=== PATIENT | female | born 1965 | race Caucasian/White ===

== ENCOUNTER 2016-12-06 09:14 | Emergency (ER) | payer OTHER ==
[~2016-12-06] VITALS: Ht 172.7 cm; Wt 68.0 kg
[~2016-12-06 09:14] MED LIST: PROVERA10 MG PO; VICODIN ES 7501 TAB PO; VIVELLE-DO0.025 MG/2 PO; ZOFRAN ODT4 MG SL
[2016-12-06 10:04] LABS: BASO % 0.4 % (0.0-1.0); EOS # 0.1 10*3/uL (0.0-0.4); EOS % 2.8 % (1.0-4.0); HEMATOCRIT 39.7 % (37.0-47.0); LYMPH # 1.1 10*3/uL (1.3-4.4); LYMPH % 24.4 % (27.0-41.0); MEAN CELL VOLUME 91.7 fl (81.0-99.0); MEAN CORPUSCULAR HGB CONC 32.7 g/dl (33.0-37.0); MONO # 0.5 10*3/uL (0.1-1.0); MONO % 10.2 % (3.0-9.0); NEUT # 2.9 10*3/uL (2.3-7.9); PLATELET COUNT AUTOMATED 183 10*3/uL (130-400); RED BLOOD COUNT 4.33 10*6/uL (4.10-5.10); RED CELL DISTRI WIDTH 12.5 % (0-14.5); WHITE BLOOD COUNT 4.6 10*3/uL (4.8-10.8)
[2016-12-06 10:11] LABS: BILIRUBIN NEGATIVE (NEGATIVE); BLOOD TRACE-INTACT (NEGATIVE); CLARITY SL CLOUDY (CLEAR); COLOR YELLOW (YELLOW); GLUCOSE NEGATIVE (NEGATIVE); KETONE NEGATIVE (NEGATIVE); LEUKO ESTERASE NEGATIVE (NEGATIVE); NITRITE NEGATIVE (NEGATIVE); PH 5.5 (5.0-9.0); PROTEIN NEGATIVE (NEGATIVE); SPECIFIC GRAVITY 1.015 (1.005-1.030); UROBILINOGEN 0.2 E.U./dl (0.2-1.0)
[2016-12-06 10:15] LABS: ALBUMIN 3.6 gm/dl (3.1-4.5); ALKALINE PHOSPHATASE 143 U/L (45-117); BILIRUBIN, TOTAL 0.6 mg/dl (0.2-1.0); BUN 13 mg/dl (7-24); CARBON DIOXIDE 31 mmol/L (21-32); CHLORIDE 104 mmol/L (98-107); EST GLOM FILT AFRICAN AMERICAN > 60 ml/min; GLUCOSE 70 mg/dL (65-99); SGOT/AST 14 IU/L (3-35); SGPT/ALT 20 U/L (12-78); SODIUM 140 mmol/L (136-145); TOTAL PROTEIN 7.2 gm/dL (6.4-8.2)
[2016-12-06 10:19] LABS: BACTERIA TRACE; RBC 0-2 rbc/hpf (0-2); URINE REFLEX COMMENT YES (NO)
[2016-12-06] MEDS ORDERED: MIRALAX POWDER17 G1 PO (11:14)
== END 2016-12-06 11:30 | disposition home or self-care (01) ==
LOC: ED 09:14
PROVIDERS: Nurse Practitioner Family
DX: K63.89 Other specified diseases of intestine (principal); Z88.6 Allergy status to analgesic agent; Z79.899 Other long term (current) drug therapy

== ENCOUNTER → 2017-09-09 | Outpatient (CLI) | payer OTHER ==
[~2017-09-09] MED LIST changes: +MIRALAX POWDER17 G1 PO
== END | disposition home or self-care (01) ==
LOC: MRI 08:43
DX: M54.15 Radiculopathy, thoracolumbar region (principal); M51.24 Other intervertebral disc displacement, thoracic region

== ENCOUNTER 2018-06-12 17:58 | Emergency (ER) | payer OTHER ==
[~2018-06-12] VITALS: Ht 170.1 cm; Wt 68.0 kg
== END 2018-06-12 19:08 | disposition home or self-care (01) ==
LOC: ED 17:58
DX: T15.02XA Foreign body in cornea, left eye, initial encounter (principal); Z98.890 Other specified postprocedural states; Z98.51 Tubal ligation status; Z88.5 Allergy status to narcotic agent; Z79.899 Other long term (current) drug therapy; X58.XXXA Exposure to other specified factors, initial encounter; Y93.89 Activity, other specified; Y92.69 Other specified industrial and construction area as the place of occurrence of the external cause; Y99.9 Unspecified external cause status

== ENCOUNTER 2018-07-11 17:31 | Emergency (ER) | payer OTHER ==
[~2018-07-11] VITALS: Ht 170.1 cm; Wt 68.0 kg
[2018-07-11] MEDS ORDERED: ZITHROMAX250 MG PO (18:54)
== END 2018-07-11 19:12 | disposition home or self-care (01) ==
LOC: ED 17:31
DX: J40 Bronchitis, not specified as acute or chronic (principal); Z88.6 Allergy status to analgesic agent; Z79.899 Other long term (current) drug therapy

== ENCOUNTER 2019-10-27 07:23 | Emergency (ER) | payer OTHER ==
[~2019-10-27] VITALS: Ht 170.1 cm; Wt 72.6 kg
[~2019-10-27 07:23] MED LIST changes: +ZITHROMAX250 MG PO
[2019-10-27] MEDS ORDERED: CEPHALEXIN500 M1 PO (08:29)
[2019-10-27] MEDS ORDERED: TYLENOL325 M1 PO (08:29)
[2019-10-27] MEDS ORDERED: NAPROXEN250 MG PO (08:29)
== END 2019-10-27 08:34 | disposition home or self-care (01) ==
LOC: ED 07:23
DX: L60.0 Ingrowing nail (principal); Z88.5 Allergy status to narcotic agent; Z79.899 Other long term (current) drug therapy

== ENCOUNTER 2019-10-30 22:35 | Emergency (ER) | payer OTHER ==
[~2019-10-30] VITALS: Wt 72.6 kg
[~2019-10-30 22:35] MED LIST changes: +CEPHALEXIN500 M1 PO; +NAPROXEN250 MG PO; +TYLENOL325 M1 PO
== END 2019-10-31 01:45 | disposition home or self-care (01) ==
LOC: ED 22:35
DX: S53.401A Unspecified sprain of right elbow, initial encounter (principal); Z79.899 Other long term (current) drug therapy; X58.XXXA Exposure to other specified factors, initial encounter; Y93.89 Activity, other specified; Y92.89 Other specified places as the place of occurrence of the external cause; Y99.8 Other external cause status

== ENCOUNTER → 2021-11-16 | Outpatient (CLI) | payer BC, OTHER | END | disposition home or self-care (01) | LOC: MAMMO 13:51 | PROVIDERS: ATTEND Nurse Practitioner | DX: Z12.31 Encounter for screening mammogram for malignant neoplasm of breast (principal) ==

== ENCOUNTER → 2023-02-11 | Outpatient (CLI) | payer BC, OTHER | END | disposition home or self-care (01) | LOC: RAD 13:19 | PROVIDERS: ATTEND Nurse Practitioner | DX: M79.645 Pain in left finger(s) (principal) ==

== ENCOUNTER → 2023-02-23 | Outpatient (CLI) | payer BC, OTHER | END | disposition home or self-care (01) | LOC: US 13:00 | PROVIDERS: ATTEND Nurse Practitioner Women's Health | DX: D25.1 Intramural leiomyoma of uterus (principal); Z90.710 Acquired absence of both cervix and uterus ==

== ENCOUNTER 2023-10-20 09:45 | Emergency (ER) | payer BC, OTHER ==
[~2023-10-20] VITALS: Ht 170.1 cm; Wt 72.6 kg
[2023-10-20] MEDS ORDERED: Ketorolac Tromethamine 30 MG/ML VIAL IM ONE (12:15)
== END 2023-10-20 13:04 | disposition home or self-care (01) ==
LOC: ED 09:45
DX: S00.83XA Contusion of other part of head, initial encounter (principal); R20.0 Anesthesia of skin; Z88.5 Allergy status to narcotic agent; Z98.51 Tubal ligation status; Z98.890 Other specified postprocedural states; W22.03XA Walked into furniture, initial encounter; Y93.89 Activity, other specified; Y92.89 Other specified places as the place of occurrence of the external cause; Y99.8 Other external cause status

== ENCOUNTER → 2024-04-19 | Outpatient (CLI) | payer BC, OTHER | END | disposition home or self-care (01) | LOC: MAMMO 09:58 | PROVIDERS: ATTEND Nurse Practitioner | DX: Z12.31 Encounter for screening mammogram for malignant neoplasm of breast (principal) ==

== ENCOUNTER → 2024-05-09 | Outpatient (CLI) | payer BC, OTHER | END | disposition home or self-care (01) | LOC: US 09:42 | PROVIDERS: ATTEND Nurse Practitioner | DX: K82.8 Other specified diseases of gallbladder (principal); R10.11 Right upper quadrant pain ==

== ENCOUNTER → 2024-05-28 | Day surgery (SDC) | payer BC ==
[~2024-05-28] VITALS: Ht 170.1 cm; Wt 72.6 kg
[2024-05-28] VITALS (8 sets, daily range): BP systolic 115–155; BP diastolic 56–80
[~2024-05-28] MED LIST changes: +Acetaminophen/Oxycodone 5 MG/325 MG TABLET ONE; +Acetaminophen/Oxycodone 5 MG/325 MG TABLET PO ONE; +BUPIVACAINE 0.5% 10 ML VIAL ONE; +COLACE100 MG PO; +Dexamethasone Sodium Phospha 10 MG/1 ML VIAL IV ONE; +HYDROmorphONE Hydrochloride 0.5 MG/0.5 ML SYRINGE IV SCH; +HYDROmorphONE Hydrochloride 0.5 MG/0.5 ML SYRINGE ONE; +Ketorolac Tromethamine 30 MG/ML VIAL IV ONE; +Lactated Ringer's Solution 1,000 ML IV ONE; +Lactated Ringer's Solution 1,000 ML IV SCH; +Lidocaine Hydrochloride 2% 5 ML SDV IM ONE; +Midazolam Hydrochloride 2 MG/2 ML VIAL IV ONE; +ONDANSETRON HYDR4 MG PO; +Ondansetron Hydrochloride 4 MG/2 ML VIAL IV ONE; +Ondansetron Hydrochloride 4 MG/2 ML VIAL ONE; +PERCOCET 5-3251 EACH PO; +PROPOFOL 200 MG/20 ML VIAL IV ONE; +ROCURONIUM BROMIDE 50 MG/5 ML SYRINGE IV ONE; +SEVOFLURANE 250 ML BOT INH ONE; +SUGAMMADEX SODIUM 200 MG/2 ML VIAL IV ONE; +Scopolamine 1 PATCH PATCH T ONE; +ceFAZolin sodium 2GM/20ML IV ONE; +ceFAZolin sodium/sodium chlor 20 ML IV ONE; +fentaNYL CITRATE 100 MCG/2 ML VIAL IV ONE
== END | disposition home or self-care (01) ==
LOC: SDC 05-24 09:30
PROVIDERS: ATTEND Surgery
DX: K82.8 Other specified diseases of gallbladder (principal); K81.1 Chronic cholecystitis; Z98.891 History of uterine scar from previous surgery; Z98.51 Tubal ligation status; Z98.890 Other specified postprocedural states; Z88.5 Allergy status to narcotic agent; Z79.899 Other long term (current) drug therapy; Z82.49 Family history of ischemic heart disease and other diseases of the circulatory system